=== PATIENT | female | born 1980 | race African-American/Black ===

== ENCOUNTER 2016-06-27 06:27 | Inpatient (IN) | payer BC ==
[~2016-06-27] VITALS: Ht 160 cm; Wt 91.6 kg
[2016-06-27] MEDS ORDERED: OXYTOCIN/NORMAL SALINE 1,000 ML IV SCH (23:31)
[2016-06-27] MEDS ORDERED: LR 1,000 ML IV SCH (23:31)
[2016-06-27] MEDS ORDERED: DINOPROSTONE 10 MG SUPP VG ONE (23:45)
[2016-06-27] MEDS ORDERED: TERBUTALINE SULFATE 1 MG/ML VIAL SUBCUT ONE (23:45)
[2016-06-27 23:49] LABS: BASOPHILS % (AUTO) 0.4 % (0.0-2.0); EOSINOPHILS # (AUTO) 0.2 K/uL (0.0-0.4); EOSINOPHILS % (AUTO) 2.5 % (0.0-4.0); HEMATOCRIT 37.4 % (36-48); HEMOGLOBIN 12.4 g/dL (12.0-16.0); LYMPHOCYTES # (AUTO) 1.6 K/uL (1.0-5.5); LYMPHOCYTES % (AUTO) 20.8 % (20.5-51.5); MEAN CORPUSCULAR HEMOGLOBIN 26 pg (27-31); MEAN CORPUSCULAR HGB CONC 33 % (32-36); MEAN CORPUSCULAR VOLUME 79 fL (79.0-98.0); MONOCYTES # (AUTO) 0.4 K/uL (0.0-1.0); NEUTROPHILS # (AUTO) 5.4 K/uL (1.8-7.7); NEUTROPHILS % (AUTO) 71.3 % (40.0-70.0); PLATELET COUNT (AUTO) 248 K/uL (130-430); RED BLOOD CELL COUNT(AUTO) 4.76 MIL/uL (4.2-6.2); RED CELL DISTRIBUTION WIDTH 14.8 % (9.0-15.0); WHITE BLOOD COUNT (AUTO) 7.6 K/uL (4.8-10.8)
[2016-06-28 01:20] VITALS: BP 129/90; RESP 18; TEMP 99.2
[2016-06-28] MEDS ORDERED: CEFAZOLIN 2 GM IVPB PREMIX 50 ML IV ONE ×2 (11:00→11:06)
[2016-06-28] MEDS ORDERED: D5LR 1,000 ML IV SCH (12:30)
[2016-06-28] MEDS ORDERED: CITRIC ACID/SODIUM CITRATE 30 ML UDC ONE (12:57)
[2016-06-28] MEDS ORDERED: ONDANSETRON HCL 4 MG/2 ML VIAL IVP ONE (14:25)
[2016-06-28] MEDS ORDERED: MIDAZOLAM HCL 5 MG/5 ML VIAL IVP ONE (14:25)
[2016-06-28] MEDS ORDERED: NS IRRIG SOLN 1000 ML IR ONE (14:25)
[2016-06-28] MEDS ORDERED: OXYTOCIN 10 UNIT/ML VIAL IV ONE (14:25)
[2016-06-28] MEDS ORDERED: LR 1,000 ML IV.SOLN IV ONE (14:25)
[2016-06-28] MEDS ORDERED: LR 1,000 ML IV SCH ×2 (15:08→15:35)
[2016-06-28] MEDS ORDERED: METOCLOPRAMIDE HCL 10 MG/2 ML VIAL IVP PRN (15:15)
[2016-06-28] MEDS ORDERED: MEPERIDINE HCL/PF 50 MG/ML AMP IVP PRN ×3 (15:15→15:45)
[2016-06-28] MEDS ORDERED: MEPERIDINE HCL/PF 25 MG/ML DISP.SYRIN IVP PRN (15:15)
[2016-06-28 15:35] VITALS: BP 142/87
[2016-06-28] MEDS ORDERED: OXYTOCIN/NORMAL SALINE 1,000 ML IV ONE ×2 (15:35→16:23)
[2016-06-28] MEDS ORDERED: BISACODYL 10 MG/SUPPOSITORY RC PRN (15:45)
[2016-06-28] MEDS ORDERED: ANUSOL 1 EA SUPP.RECT (PREPARATION H) RC PRN (15:45)
[2016-06-28] MEDS ORDERED: MEASLES,MUMPS&RUBELLA VACC/PF 12500 UNIT/0.5 ML VIAL SUBQ PRN (15:45)
[2016-06-28] MEDS ORDERED: LANOLIN 7 GM OINT. TP PRN (15:45)
[2016-06-28] MEDS ORDERED: MEPERIDINE HCL/PF 50 MG/ML AMP IM PRN (15:45)
[2016-06-28] MEDS ORDERED: MEPERIDINE HCL/PF 25 MG/ML DISP.SYRIN ONE ×2 (16:38→16:57)
[2016-06-28] MEDS ORDERED: METOCLOPRAMIDE HCL 10 MG/2 ML VIAL ONE (16:53)
[2016-06-28] MEDS: CEFAZOLIN 1 GM IVPB PREMIX 50 ML IV SCH ×2 (18:12→23:40)
[2016-06-28] MEDS: D5LR IV SCH (18:13)
[2016-06-28] MEDS: OXYTOCIN IV SCH (18:13)
[2016-06-28] MEDS ORDERED: HYDROmorphone 2 MG/ML VIAL ONE (20:11)
[2016-06-28] MEDS ORDERED: ACETAMINOPHEN 325 MG TABLET PO PRN (20:45)
[2016-06-28] MEDS ORDERED: TEMAZEPAM 15 MG CAPSULE PO PRN (21:00)
[2016-06-28] MEDS: HYDROmorphone 2 MG/ML VIAL IVP PRN (23:39)
[2016-06-29] MEDS: D5LR IV SCH (03:27)
[2016-06-29] MEDS: OXYTOCIN IV SCH (03:27)
[2016-06-29] MEDS: HYDROmorphone 2 MG/ML VIAL IVP PRN ×3 (03:58→11:53)
[2016-06-29] MEDS: CEFAZOLIN 1 GM IVPB PREMIX 50 ML IV SCH (05:55)
[2016-06-29 07:23] LABS: BASOPHILS # (AUTO) 0.1 K/uL (0.0-0.2); BASOPHILS % (AUTO) 1.5 % (0.0-2.0); EOSINOPHILS # (AUTO) 0.1 K/uL (0.0-0.4); HEMATOCRIT 35.8 % (36-48); HEMOGLOBIN 11.9 g/dL (12.0-16.0); LYMPHOCYTES # (AUTO) 1.2 K/uL (1.0-5.5); LYMPHOCYTES % (AUTO) 12.4 % (20.5-51.5); MEAN CORPUSCULAR HEMOGLOBIN 26 pg (27-31); MEAN CORPUSCULAR HGB CONC 33 % (32-36); MEAN CORPUSCULAR VOLUME 79 fL (79.0-98.0); MONOCYTES # (AUTO) 0.5 K/uL (0.0-1.0); MONOCYTES % (AUTO) 5.7 % (1.7-9.3); NEUTROPHILS # (AUTO) 7.4 K/uL (1.8-7.7); NEUTROPHILS % (AUTO) 79.4 % (40.0-70.0); PLATELET COUNT (AUTO) 197 K/uL (130-430); RED BLOOD CELL COUNT(AUTO) 4.51 MIL/uL (4.2-6.2); RED CELL DISTRIBUTION WIDTH 15.1 % (9.0-15.0); WHITE BLOOD COUNT (AUTO) 9.3 K/uL (4.8-10.8)
[2016-06-29] MEDS: SIMETHICONE 80 MG TAB.CHEW PO PRN ×2 (10:56→18:15)
[2016-06-29] MEDS ORDERED: DIPHENHYDRAMINE INJ 50 MG/ML VIAL IVP PRN (11:15)
[2016-06-29] MEDS ORDERED: ONDANSETRON HCL 4 MG/2 ML VIAL IVP PRN (11:15)
[2016-06-29] MEDS: HYDROcodone/ACETAMIN 5-325 MG TAB (NORCO/ VICODIN) PO PRN ×3 (13:18→20:54)
[2016-06-29] MEDS: IBUPROFEN 600 MG TABLET PO SCH (18:15)
[2016-06-30] MEDS: SIMETHICONE 80 MG TAB.CHEW PO PRN ×4 (00:03→21:40)
[2016-06-30] MEDS: IBUPROFEN 600 MG TABLET PO SCH ×3 (00:03→16:06)
[2016-06-30] MEDS: HYDROcodone/ACETAMIN 5-325 MG TAB (NORCO/ VICODIN) PO PRN ×4 (01:01→21:39)
[2016-07-01] MEDS: IBUPROFEN 600 MG TABLET PO SCH ×3 (00:06→06:00)
[2016-07-01] MEDS: SIMETHICONE 80 MG TAB.CHEW PO PRN (07:47)
[2016-07-01] MEDS: HYDROcodone/ACETAMIN 5-325 MG TAB (NORCO/ VICODIN) PO PRN (11:23)
== END 2016-07-01 14:30 | disposition home or self-care (01) | DRG 766 ==
LOC: SPU 10:20 → OBSVTOIN 22:20
PROVIDERS: ADMIT Specialist; ATTEND Specialist
PROC: 10D00Z1 Extraction of Products of Conception, Low, Open Approach (ICD-10-PCS; principal; 2016-06-28 12:15)
DX: O24.32 Unspecified pre-existing diabetes mellitus in childbirth (principal); Z37.0 Single live birth; Z3A.39 39 weeks gestation of pregnancy; Z79.4 Long term (current) use of insulin; E11.8 Type 2 diabetes mellitus with unspecified complications; E11.9 Type 2 diabetes mellitus without complications
CPT/HCPCS: 36415; 76805-TC; 81002-TC; 82962; 85025; 86592; 86886; 86900; 86901; 94760; A4618; C1751; G0378; J0690; J1170; J1200; J2175; J2250; J2405; J2590; J2765; J7120